=== PATIENT | female | born 1965 | race Asian ===

== ENCOUNTER 2017-05-19 05:41 | Day surgery (SDC) | payer OTHER ==
[2017-05-19] VITALS (9 sets, daily range): BP systolic 103–126; BP diastolic 58–76
[~2017-05-19] VITALS: Ht 160 cm; Wt 64.4 kg
[~2017-05-19 05:41] MED LIST: Akten 3.5% 1ml Btl ONE; ESTROVEN 155 M155 MG PO; FISH OIL CAP1000 MG ORAL; Flurbiprofen 0.03% Opth Sol 2.5ml ONE; LOSARTAN POTASS25 MG ORAL; Phenylephrine 2.5% Op 2ml Soln ONE; Tobradex Opth Susp 2.5ml ONE; Tropicamide 1% Opth 15ml Soln ONE; Vigamox Opth Soln 3ml ONE
[2017-05-19] MEDS ORDERED: fentaNYL 100 mcg/2 mL IV ONE (05:42)
[2017-05-19] MEDS ORDERED: Midazolam 2mg/2ml Inj ONE (05:42)
[2017-05-19] MEDS ORDERED: Sterile Water Irrig 1000ml IRRIG ONE (05:42)
[2017-05-19] MEDS ORDERED: NS Irrig 1000ml ONE (05:42)
[2017-05-19] MEDS ORDERED: LR 1000ml ONE (05:42)
[2017-05-19] MEDS: Phenylephrine 2.5% Op 2ml Soln RIGHT EYE SCH ×3 (06:10→06:32)
[2017-05-19] MEDS: Vigamox Opth Soln 3ml RIGHT EYE SCH ×3 (06:10→06:32)
[2017-05-19] MEDS: Tobradex Opth Susp 2.5ml RIGHT EYE SCH ×3 (06:10→06:32)
[2017-05-19] MEDS: Tropicamide 1% Opth 15ml Soln RIGHT EYE SCH ×3 (06:10→06:32)
[2017-05-19] MEDS: Akten 3.5% 1ml Btl RIGHT EYE SCH ×3 (06:11→06:32)
[2017-05-19] MEDS: Flurbiprofen 0.03% Opth Sol 2.5ml RIGHT EYE SCH ×3 (06:11→06:32)
[2017-05-19] MEDS ORDERED: Lidocaine 1% MPF 10mg/ml 5ml ONE (06:43)
[2017-05-19] MEDS ORDERED: BSS 500ml btl ONE (06:43)
[2017-05-19] MEDS ORDERED: Dexamethasone 4mg/ml vial ONE (06:44)
[2017-05-19] MEDS ORDERED: Povidone-Iodine 5% opth solution ONE (06:45)
[2017-05-19] MEDS ORDERED: EPINEPHrine 1mg/1ml Amp ONE (06:45)
[2017-05-19] MEDS ORDERED: BSS 15ml BTL ONE (06:45)
[2017-05-19] MEDS ORDERED: Carbachol 0.01% Op Soln 1.5ml vial ONE (07:11)
[2017-05-19] MEDS ORDERED: acetaZOLAMIDE 500mg Inj ONE (07:11)
[2017-05-19] MEDS ORDERED: Maxitrol Opth Susp 5ml ONE (07:20)
--- NOTE | 2017-05-19 07:27 | Anethesia Preoperative Eval ---
Anesthesia Pre-op PMH/ROS General Date of Evaluation: May 19, 2017 Time of Evaluation: 07:15 Anesthesiologist: Gabe ASA Score: ASA 2 Mallampati Score Class I : Soft palate, uvula, fauces, pillars visible Class II: Soft palate, uvula, fauces visible Class III: Soft palate, base of uvula visible Class IV: Only hard plate visible Mallampati Classification: Class III Surgeon: Rafi Diagnosis: cataract of right eye Surgical Procedure: cataract extraction with IOL of right eye Anesthesia History: none Family History: no anesthesia problems Allergies: Coded Allergies: No Known Allergies (Unverified , 05/18/17) Medications: see eMAR Past Medical History Cardiovascular: Reports: HTN Pulmonary: Denies: asthma, COPD, STEPHEN, other Gastrointestinal/Genitourinary: Reports: other - hysterectomy in past Neurologic/Psychiatric: Denies: dementia, CVA, depression/anxiety, TIA, other Endocrine: Denies: DM, hypothyroidism, steroids, other HEENT: Reports: cataract (R), other - retinal detachment of bilateral eyes - sx done in past Hematology/Immune: Denies: anemia, DVT, bleeding disorder, other Musculoskeletal/Integumentary: Denies: OA, RA, DJD, DDD, edema, other Anesthesia Pre-op Phys. Exam Physician Exam Last Vital Signs Date Time Temp Pulse Resp B/P (MAP) Pulse Ox O2 Delivery O2 Flow Rate FiO2 05/19/17 06:19 98.0 73 18 120/76 97 Room Air Constitutional: NAD Neurologic: CN 2-12 intact Cardiovascular: RRR Respiratory: CTA Gastrointestinal: S/NT/ND Airway Exam Mallampati Score: Class III MO: full ROM: full Teeth: intact Dentures: no upper, no lower Anesthesia Pre-op A/P Labs chart reviewed Studies Pre-op Studies: EKG - NSR 73BPM Risk Assessment & Plan Assessment: A&OX4 Plan: MAC Status Change Before Surgery: No Pre-Antibiotics Given Within 1 Hr of Incision: No - none per surgeon Angie Bernal CRNA May 19, 2017 07:26
--- NOTE | 2017-05-19 07:28 | Immediate Post-Op Evaluation ---
Immediate Post-Op Evalulation Immediate Post-Op Evalulation Procedure: cataract extraction with IOL right eye Date of Evaluation: May 19, 2017 Time of Evaluation: 08:25 IV Fluids: LR 500 ml Blood Products: 0 Estimated Blood Loss: 0 Urinary Output: 0 Blood Pressure Systolic: 121 Blood Pressure Diastolic: 74 Pulse Rate: 69 Respiratory Rate: 20 O2 Sat by Pulse Oximetry: 98 Temperature (Fahrenheit): 97.6 Pain Score (1-10): 0 Nausea: No Vomiting: No Patient Status: awake, reacts, patent Hydration Status: adequate Given Within 1 Hr of Incision: Angie Vásquez CRNA May 19, 2017 07:28
--- NOTE | 2017-05-19 07:51 | Pre-Procedure Note/Attestation ---
Pre-Procedure Note/Attestation Complete Prior to Procedure Planned Procedure: right Procedure Narrative: cataract extraction with implant right eye Indications for Procedure Pre-Operative Diagnosis: cataract right eye Attestation I attest that I discussed the nature of the procedure; its benefits; risks and complications; and alternatives (and the risks and benefits of such alternatives ), prior to the procedure, with the patient (or the patient's legal dairy supplies sales representative). I attest that, if there was a reasonable possibility of needing a blood transfusion, the patient (or the patient's legal dairy supplies sales representative) was given the [facility] standardized written summary, pursuant to the [place] Blood Safety Act ([place] Health and Safety Code # 1645, as amended). I attest that I re-evaluated the patient just prior to the surgery and that there has been no change in the patient's H&P, except as documented below: JOYCE RINCON May 19, 2017 07:51
--- NOTE | 2017-05-19 08:26 | Brief Operative Note ---
Immediate Post Operative Note Operative Note Pre-op Diagnosis: cataract right eye Post-op Diagnosis: phacoemulsification of cataract with implant right eye Post-op Diagnosis: same as pre-op Surgeon: joyce amezcua [facility] Analyst: none Anesthesiologist: rupal myers crna Anesthesia: MAC Specimen: none Complications: none Condition: stable Fluids: none Estimated Blood Loss: none Drains: none Implant(s) used?: Yes JOYCE AMEZCUA May 19, 2017 08:26
--- NOTE | 2017-05-19 08:34 | 48 Hour Post Anesthesia Eval ---
Post Anesthesia Evaluation Procedure: cataract extraction with IOL right eye Date of Evaluation: May 19, 2017 Time of Evaluation: 08:32 Blood Pressure Systolic: 120 0: 70 Pulse Rate: 68 Respiratory Rate: 18 Temperature (Fahrenheit): 97.6 O2 Sat by Pulse Oximetry: 97 Airway: patent Nausea: No Vomiting: No Pain Intensity: 0 Hydration Status: adequate Cardiopulmonary Status: WNL Mental Status/LOC: patient returned to baseline Follow-up care needed: patient intructions given Angie Bernal CRNA May 19, 2017 08:34
--- NOTE | 2017-05-19 19:00 | Operative Note - Dictated ---
DATE OF OPERATION: 05/19/2017 PREOPERATIVE DIAGNOSIS: Cataract, right eye. POSTOPERATIVE DIAGNOSIS: Cataract, right eye. PROCEDURE: Phacoemulsification of cataract right eye with placement of posterior chamber intraocular lens. SURGEON[place]ia Mckee [place] [place] MAIL PROCESSING ASSOCIATE: None. ANESTHESIA: MAC/topical. ANESTHESIOLOGIST: Angie Bernal CRNA. INDICATION FOR PROCEDURE: Poor vision, right eye. DESCRIPTION OF FINDINGS: Anterior subcapsular and posterior subcapsular cataract, right eye. DESCRIPTION OF PROCEDURE: The patient received a topical anesthetic block consisting of 3.5% Akten eye drops. The eye was then prepped and draped in usual manner. A lid speculum was placed. An operating Zeiss microscope was positioned. A temporal corneal groove was then made with a lluvia blade. A SuperSharp blade made a stab incision at the 12 o'clock position. A 0.1 mL of 1% nonpreserved intracameral lidocaine was injected. Healon was instilled into the anterior chamber and a 2.5/2.8 mm trapezoidal lluvia blade was used to complete the temporal corneal wound. A cystotome was used to create an anterior capsular flap. Utrata forceps were used to complete the capsulorrhexis. BSS on a cannula was used to hydrodissect the nucleus. The lens nucleus was phacoemulsified in a phaco-fracture technique. Remaining cortical material was removed with the I/A and the posterior capsule polished with the I/A on Cap vac. Healon was instilled in the capsular bag and anterior chamber, and an Logan foldable one-piece posterior chamber intraocular lens, model ZCB00, power 18.5 diopter, serial #[id number] was placed in the injector. The lens was put into the capsular bag. The I/A tip was used to remove the Healon and position the lens. The wound edge was hydrated with BSS and a blunt-tipped cannula. The wound was checked and found to be watertight. The lid speculum was removed, and a drop of TobraDex and Vigamox was placed. A clear plastic shield was taped over the eye. The patient tolerated the procedure well and left the operating room in good condition. Elia Mckee M.D. ([facility]) DR: VANESA JOB#: [id number] CC: BENSON
== END 2017-05-19 09:45 | disposition home or self-care (01) ==
LOC: SUR 05:41
DX: H25.041 Posterior subcapsular polar age-related cataract, right eye (principal); I10 Essential (primary) hypertension; Z90.710 Acquired absence of both cervix and uterus; Z83.3 Family history of diabetes mellitus; Z82.49 Family history of ischemic heart disease and other diseases of the circulatory system; Z80.3 Family history of malignant neoplasm of breast; Z80.41 Family history of malignant neoplasm of ovary; Z80.59 Family history of malignant neoplasm of other urinary tract organ; Z80.0 Family history of malignant neoplasm of digestive organs; Z82.3 Family history of stroke
CPT/HCPCS: 94003; 94150; J2250

== ENCOUNTER 2017-06-23 05:58 | Day surgery (SDC) | payer OTHER ==
--- NOTE | 2017-06-22 13:28 | Pre-Procedure Note/Attestation ---
Pre-Procedure Note/Attestation Complete Prior to Procedure Planned Procedure: left Procedure Narrative: cataract extraction with implant left eye Indications for Procedure Pre-Operative Diagnosis: cataract left eye Attestation I attest that I discussed the nature of the procedure; its benefits; risks and complications; and alternatives (and the risks and benefits of such alternatives ), prior to the procedure, with the patient (or the patient's legal sales representative jewelry). I attest that, if there was a reasonable possibility of needing a blood transfusion, the patient (or the patient's legal sales representative jewelry) was given the [facility] standardized written summary, pursuant to the [place] Blood Safety Act ([place] Health and Safety Code # 1645, as amended). I attest that I re-evaluated the patient just prior to the surgery and that there has been no change in the patient's H&P, except as documented below: JOYCE RINCON Jun 22, 2017 13:27
[2017-06-23] VITALS (8 sets, daily range): BP systolic 102–126; BP diastolic 60–78
[~2017-06-23] VITALS: Ht 160 cm; Wt 64.4 kg
[~2017-06-23 05:58] MED LIST changes: -Akten 3.5% 1ml Btl ONE; -Flurbiprofen 0.03% Opth Sol 2.5ml ONE; -Phenylephrine 2.5% Op 2ml Soln ONE; -Tobradex Opth Susp 2.5ml ONE; -Tropicamide 1% Opth 15ml Soln ONE; -Vigamox Opth Soln 3ml ONE
[2017-06-23] MEDS ORDERED: Vigamox Opth Soln 3ml ONE (06:01)
[2017-06-23] MEDS ORDERED: Flurbiprofen 0.03% Opth Sol 2.5ml ONE (06:02)
[2017-06-23] MEDS ORDERED: Phenylephrine 2.5% Op 2ml Soln ONE (06:02)
[2017-06-23] MEDS ORDERED: Tropicamide 1% Opth 15ml Soln ONE (06:02)
[2017-06-23] MEDS ORDERED: Akten 3.5% 1ml Btl ONE (06:02)
[2017-06-23] MEDS ORDERED: Tobradex Opth Susp 2.5ml ONE (06:02)
[2017-06-23] MEDS: Akten 3.5% 1ml Btl LEFT EYE SCH ×3 (06:25→06:44)
[2017-06-23] MEDS: Tropicamide 1% Opth 15ml Soln LEFT EYE SCH ×3 (06:25→06:45)
[2017-06-23] MEDS: Tobradex Opth Susp 2.5ml LEFT EYE SCH ×3 (06:26→06:45)
[2017-06-23] MEDS: Flurbiprofen 0.03% Opth Sol 2.5ml LEFT EYE SCH ×3 (06:26→06:45)
[2017-06-23] MEDS: Vigamox Opth Soln 3ml LEFT EYE SCH ×3 (06:26→06:45)
[2017-06-23] MEDS: Phenylephrine 2.5% Op 2ml Soln LEFT EYE SCH ×3 (06:26→06:45)
[2017-06-23] MEDS ORDERED: BSS 500ml btl ONE (06:57)
[2017-06-23] MEDS ORDERED: Povidone-Iodine 5% opth solution ONE (06:58)
[2017-06-23] MEDS ORDERED: Dexamethasone 4mg/ml vial ONE (06:58)
[2017-06-23] MEDS ORDERED: Carbachol 0.01% Op Soln 1.5ml vial ONE (06:58)
[2017-06-23] MEDS ORDERED: Lidocaine 1% MPF 10mg/ml 5ml ONE (06:58)
[2017-06-23] MEDS ORDERED: EPINEPHrine 1mg/1ml Amp ONE (06:58)
[2017-06-23] MEDS ORDERED: Sodium Hyaluronate 14 mg/ml 0.85ml ONE (06:59)
[2017-06-23] MEDS ORDERED: BSS 15ml BTL ONE (06:59)
[2017-06-23] MEDS ORDERED: Midazolam 2mg/2ml Inj ONE (07:00)
[2017-06-23] MEDS ORDERED: fentaNYL 100 mcg/2 mL IV ONE (07:00)
[2017-06-23] MEDS ORDERED: LR 1000ml ONE (07:00)
--- NOTE | 2017-06-23 07:37 | Anethesia Preoperative Eval ---
Anesthesia Pre-op PMH/ROS General Date of Evaluation: Jun 23, 2017 Time of Evaluation: 07:20 Anesthesiologist: Gabe ASA Score: ASA 1 Mallampati Score Class I : Soft palate, uvula, fauces, pillars visible Class II: Soft palate, uvula, fauces visible Class III: Soft palate, base of uvula visible Class IV: Only hard plate visible Mallampati Classification: Class II Surgeon: Rafi Diagnosis: left eye cataract Surgical Procedure: Left eye cataract extraction with implant Anesthesia History: none Social History: smoking Family History: no anesthesia problems Allergies: Coded Allergies: No Known Allergies (Unverified , 05/18/17) Medications: see eMAR Past Medical History Cardiovascular: Reports: HTN Pulmonary: Reports: other - 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 Gastrointestinal/Genitourinary: Denies: GERD, CRI, ESRD, other Neurologic/Psychiatric: Denies: dementia, CVA, depression/anxiety, TIA, other Endocrine: Denies: DM, hypothyroidism, steroids, other HEENT: Reports: cataract (L), cataract (R) - cataract extraction 05/2017 Hematology/Immune: Reports: anemia - hx of anemia in past Musculoskeletal/Integumentary: Denies: OA, RA, DJD, DDD, edema, other PSxH Narrative: hysterectomy 2014 retinal detachment repair (cataract extraction of Right eye) - 05/2017 Anesthesia Pre-op Phys. Exam Physician Exam Last Vital Signs Date Time Temp Pulse Resp B/P (MAP) Pulse Ox O2 Delivery O2 Flow Rate FiO2 06/23/17 06:29 96.9 71 20 126/78 98 Room Air Constitutional: NAD Neurologic: CN 2-12 intact Cardiovascular: RRR Respiratory: CTA Gastrointestinal: S/NT/ND Airway Exam Mallampati Score: Class II MO: full ROM: full Teeth: intact Dentures: no upper, no lower Anesthesia Pre-op A/P Labs chart reviewed Studies Pre-op Studies: EKG - NSR Risk Assessment & Plan Assessment: A&O x 4 Plan: MAC Status Change Before Surgery: No Pre-Antibiotics Given Within 1 Hr of Incision: No - none per surgeon Angie Bernal CRNA Jun 23, 2017 07:37
--- NOTE | 2017-06-23 07:46 | Immediate Post-Op Evaluation ---
Immediate Post-Op Evalulation Immediate Post-Op Evalulation Procedure: left eye cataract extraction with implant Date of Evaluation: Jun 23, 2017 Time of Evaluation: 08:21 IV Fluids: LR 400 ml Blood Products: 0 Estimated Blood Loss: 0 Urinary Output: 0 Blood Pressure Systolic: 106 Blood Pressure Diastolic: 67 Pulse Rate: 66 Respiratory Rate: 18 O2 Sat by Pulse Oximetry: 99 Temperature (Fahrenheit): 98.2 Pain Score (1-10): 0 Nausea: No Vomiting: No Patient Status: awake, reacts Hydration Status: adequate Given Within 1 Hr of Incision: Angie Vásquez CRNA Jun 23, 2017 07:46
--- NOTE | 2017-06-23 08:23 | Brief Operative Note ---
Immediate Post Operative Note Operative Note Pre-op Diagnosis: cataract left eye Procedure: phacoemulsification of cataract with implant left eye Post-op Diagnosis: same as pre-op Surgeon: joyce amezcua Hand Gluer And Slicer: none Anesthesiologist: rupal myers crna Anesthesia: MAC Specimen: none Complications: none Condition: stable Fluids: none Estimated Blood Loss: none Drains: none Implant(s) used?: Yes JOYCE AMEZCUA Jun 23, 2017 08:23
--- NOTE | 2017-06-23 08:32 | 48 Hour Post Anesthesia Eval ---
Post Anesthesia Evaluation Procedure: left eye cataract extraction with implant Date of Evaluation: Jun 23, 2017 Time of Evaluation: 08:31 Blood Pressure Systolic: 103 0: 67 Pulse Rate: 66 Respiratory Rate: 16 Temperature (Fahrenheit): 98.2 O2 Sat by Pulse Oximetry: 98 Airway: patent Nausea: No Vomiting: No Pain Intensity: 0 Hydration Status: adequate Mental Status/LOC: patient returned to baseline Post-Anesthesia Complications: none noted at this time Follow-up care needed: patient intructions given Angie Bernal CRNA Jun 23, 2017 08:32
[2017-06-23] MEDS ORDERED: Sterile Water Irrig 1000ml IRRIG ONE (09:00)
[2017-06-23] MEDS ORDERED: NS Irrig 1000ml ONE (09:00)
--- NOTE | 2017-06-23 16:30 | Operative Note - Dictated ---
DATE OF OPERATION: 06/23/2017 PREOPERATIVE DIAGNOSIS: Cataract, left eye. POSTOPERATIVE DIAGNOSIS: Cataract, left eye. PROCEDURE: Phacoemulsification of cataract left eye with placement of posterior intraocular lens. SURGEON: Elia Mckee M.D. ([facility] [place] SPECIAL DEPUTY SHERIFF: None. ANESTHESIA: Mac/topical. WOOD CRAFTSMAN: Angie myers CRNA. INDICATION FOR PROCEDURE: Poor vision, left eye. DESCRIPTION OF FINDINGS: Anterior and posterior subcapsular cataract, left eye. DESCRIPTION OF PROCEDURE: The patient received a topical anesthetic block consisting of 3.5% Akten eye drops. The eye was then prepped and draped in usual manner. A lid speculum was placed and a Zeiss microscope was positioned. A lluvia blade was used to make a corneal groove at the temporal position. A SuperSharp blade made a stab incision at the 6 o'clock position. A 0.1 mL of 1% nonpreserved intracameral lidocaine was injected. Healon was instilled into the anterior chamber, and 2.5/2.8 mm trapezoidal lluvia blade was used to complete the temporal corneal wound. A cystotome was used to create an anterior capsular flap. Utrata forceps were used to complete the capsulorrhexis. BSS on a cannula was used to hydrodissect the nucleus. The lens nucleus was phacoemulsified in a phaco-fracture technique. Remaining cortical material was removed with the I/A and the posterior capsule was polished with the I/A on Cap vac. Healon was instilled into the capsular bag and anterior chamber, and an Logan foldable one-piece posterior intraocular lens, model ZCB00, power 19.0 diopter, serial #[id number] was placed in the injector. The lens was put in the capsular bag. The I/A tip was used to remove the Healon and position the lens. The wound edge was hydrated with BSS and a blunt-tipped cannula. The wound was checked and found to be watertight. The lid speculum was removed and a drop of TobraDex and Vigamox was placed. A clear plastic shield was taped over the eye. The patient tolerated well and left the operating room in good condition. Elia Mckee M.D. ([facility]) DR: BARBARA JOB#: [id number] CC: BENSON
== END 2017-06-23 09:40 | disposition home or self-care (01) ==
LOC: SUR 05:58
DX: H25.042 Posterior subcapsular polar age-related cataract, left eye (principal); H25.032 Anterior subcapsular polar age-related cataract, left eye; I10 Essential (primary) hypertension; Z90.710 Acquired absence of both cervix and uterus; Z83.3 Family history of diabetes mellitus; Z82.49 Family history of ischemic heart disease and other diseases of the circulatory system; Z80.41 Family history of malignant neoplasm of ovary; Z80.3 Family history of malignant neoplasm of breast; Z80.0 Family history of malignant neoplasm of digestive organs; Z80.59 Family history of malignant neoplasm of other urinary tract organ; Z82.3 Family history of stroke
CPT/HCPCS: 66984; J0171; J1100; J2250; J3010; J7120; V2632; 94003; 94150